=== PATIENT | female | born 1940 | race Caucasian/White ===

== ENCOUNTER → 2018-02-26 | Outpatient (CLI) | payer MEDICARE, OTHER ==
--- NOTE | 2018-02-26 10:49 | Diagnostic Imaging Report ---
PROCEDURE: US carotid duplex, bilateral. TECHNIQUE: Multiple real-time grayscale images were obtained over the carotid arteries in various projections, bilaterally. Additional duplex Doppler and color Doppler images were also obtained. INDICATION: Right carotid bruit. FINDINGS: No significant plaquing is identified in either carotid system. The velocities are normal bilaterally. No velocity elevation or stenosis is seen. Both vertebral arteries demonstrate antegrade flow. Parameters based on the consensus panel Huddleston-Scale and Doppler ultrasound criteria published June 2003, Radiology, Volume 229. DOPPLER (peak systolic velocity M/S Right Left CCA 1.0 .94 ICA Proximal 1.0 1.1 ICA Mid 1.2 1.2 ICA Distal 1.4 .64 RATIO 1.3 1.3 ECA 1.7 1.6 VERT .61 .77 IMPRESSION: No evidence of a hemodynamically significant stenosis. Dictated by: Dictated on workstation # [id number]
--- NOTE | 2018-02-26 10:54 | Diagnostic Imaging Report ---
INDICATION: Osteoporosis. COMPARISON: Comparison is made with prior DEXA study from 02/23/2015. FINDINGS: Bone mineral analysis of the lumbar spine was performed. The hips could not be evaluated due to bilateral hip replacements. Bone mineral density of the lumbar spine L2-L4 is 1.186 with T score -0.1. This compares with 0.980 and -1.8. IMPRESSION: Normal bone mineral density of the lumbar spine. Dictated by: Dictated on workstation # [id number]
== END ==
LOC: RAD 09:38
PROVIDERS: ATTEND Family Medicine
DX: R09.89 Other specified symptoms and signs involving the circulatory and respiratory systems (principal); M85.9 Disorder of bone density and structure, unspecified
CPT/HCPCS: 77080; 93880

== ENCOUNTER → 2019-02-19 | Outpatient (CLI) | payer MEDICARE ==
--- NOTE | 2019-02-19 15:54 | Diagnostic Imaging Report ---
INDICATION: 36 pack year smoker, current smoking, for low-dose CT screening. COMPARISON: 03/01/2016. FINDINGS: A juxtapleural micronodule in the right middle lobe at the lung base anteriorly (image 132/series 2) is stable confirming its benignity. Some increased septal density and groundglass heterogeneous opacity in the lungs are likely some worsened chronic interstitial disease. There is mild bronchiectasis. No new dominant or suspicious lung mass. No adenopathy, effusion, or pneumothorax. IMPRESSION: Chronic benign micronodule. No dominant or suspicious mass. Continued low-dose annual CT followup in 1 year is recommended. Worsened chronic interstitial disease with some mild bronchiectasis, increased septal thickening, scattered heterogeneous air trapping, and groundglass opacities as well as some curvilinear subpleural scarring. Lung RADS category 2. Dictated by: Dictated on workstation # [id number]
== END ==
LOC: RAD 13:00
PROVIDERS: ATTEND Family Medicine
DX: Z12.2 Encounter for screening for malignant neoplasm of respiratory organs (principal); J84.89 Other specified interstitial pulmonary diseases; R91.1 Solitary pulmonary nodule; R47.9 Unspecified speech disturbances; J34.89 Other specified disorders of nose and nasal sinuses; F17.210 Nicotine dependence, cigarettes, uncomplicated

== ENCOUNTER → 2019-05-12 | Outpatient (CLI) | payer MEDICARE ==
--- NOTE | 2019-05-12 15:03 | Diagnostic Imaging Report ---
PROCEDURE: US Renal Bilateral. TECHNIQUE: Multiple real-time grayscale images were obtained over the kidneys in various projections bilaterally. INDICATION: Renal insufficiency. FINDINGS: Right kidney measures 10.7 x 4.3 x 4.5 cm and the left kidney measures 10.7 x 5.6 x 4.4 cm. Cortical thickness and echogenicity are normal. No calculi are seen. There is no hydronephrosis. There are bilateral renal cysts. Largest cyst on the right is approximately 2.8 cm. Largest cyst on the left is 4.1 cm. Bladder demonstrates bilateral ureteral jets. IMPRESSION: 1. Bilateral renal cysts. No calculus or hydronephrosis is detected. Dictated by: Dictated on workstation # [id number]
== END ==
LOC: RAD 12:17
PROVIDERS: ATTEND Family Medicine
DX: N28.1 Cyst of kidney, acquired (principal)
CPT/HCPCS: 76770

== ENCOUNTER → 2019-06-09 | Outpatient (CLI) | payer MEDICARE ==
--- NOTE | 2019-06-09 15:07 | Diagnostic Imaging Report ---
INDICATION: Injury from a fall, back pain. FINDINGS: There is grade 1 spondylolisthesis at L4-L5. There is disc space narrowing at L1-2, L2-3, L3-4, and L4-5. There are anterior osteophytes forming throughout the lumbar spine. IMPRESSION: Spondylosis deforms. Diffuse degenerative disc changes. There is some facet arthropathy from L2 to S1. There is grade 1 spondylolisthesis at L5-S1. Dictated by: Dictated on workstation # [id number]
--- NOTE | 2019-06-09 15:10 | Diagnostic Imaging Report ---
INDICATION: Fall with low back pain extending into the legs. TIME OF EXAM: 2:49 PM FINDINGS: Multiple views of the sacroiliac joints were obtained. There is no evidence of ankylosis. No definite osseous erosion or sclerosis is seen. Postoperative changes bilateral hip arthroplasties are noted. The rami appear to be intact. Symphysis is non-widened. IMPRESSION: Unremarkable bilateral sacroiliac joints. No acute abnormality is detected. Dictated by: Dictated on workstation # [id number]
--- NOTE | 2019-06-09 15:11 | Diagnostic Imaging Report ---
INDICATION: Fall with left shoulder pain. TIME OF EXAM: 2:38 p.m. TECHNIQUE: Three views of the left shoulder were obtained. FINDINGS: Glenohumeral and acromioclavicular alignment are normal. There are degenerative changes at the AC joint. Acromiohumeral space is normal. No fracture or dislocation is identified. IMPRESSION: Degenerative changes. No acute bony abnormality is detected. Dictated by: Dictated on workstation # [id number]
== END ==
LOC: RAD 14:01
PROVIDERS: ATTEND Nurse Practitioner Family
DX: M47.816 Spondylosis without myelopathy or radiculopathy, lumbar region (principal); M51.16 Intervertebral disc disorders with radiculopathy, lumbar region; M43.17 Spondylolisthesis, lumbosacral region; M19.012 Primary osteoarthritis, left shoulder
CPT/HCPCS: 72100; 72202; 73030

== ENCOUNTER 2019-11-12 08:01 | Outpatient (RCR) | payer MEDICARE | END 2019-11-12 08:55 | disposition home or self-care (01) | PROVIDERS: ATTEND Family Medicine | DX: M51.36 Other intervertebral disc degeneration, lumbar region (principal); M53.3 Sacrococcygeal disorders, not elsewhere classified; I10 Essential (primary) hypertension; H91.90 Unspecified hearing loss, unspecified ear; Z96.643 Presence of artificial hip joint, bilateral ==

== ENCOUNTER → 2020-02-21 | Outpatient (CLI) | payer MEDICARE ==
--- NOTE | 2020-02-21 14:25 | Diagnostic Imaging Report ---
CT Lung Screening INDICATION: Screening for lung cancer, 86[address] history of smoking, current smoker. TECHNIQUE: Noncontrast, low-dose CT imaging performed according to the lung cancer screening protocol. Auto Exposure Controls were utilize during the CT exam to meet ALARA standards for radiation dose reduction. COMPARISON: February 19, 2019 and March 01, 2016. FINDINGS: No significant adenopathy within the chest. Mild scattered vascular calcifications. No aneurysmal dilatation of the thoracic aorta. The heart is within normal limits in size. No significant pericardial effusion or pleural effusion. No hiatal hernia. No pneumothorax. 0.4 x 0.4 cm solid right upper lobe pulmonary nodule is again identified and stable from prior examination, axial image 22. 4 mm subpleural right upper lobe pulmonary nodule is stable from the prior exam. Mild background interstitial lung changes are again identified with associated chronic reticular opacities and minimal bronchiectatic changes. Subpleural scarring and fibrosis is also again noted. The trachea appears patent. The minimally visualized upper abdomen is unremarkable. No acute osseous abnormality with scattered osseous degenerative changes. IMPRESSION: Similar-appearing background chronic interstitial lung changes with stable sub-6 mm right-sided pulmonary nodules. No new pulmonary nodules. LUNG-RADS CATEGORY: 2S: Benign appearance or behavior. MODIFIER: S: [id number] background chronic interstitial lung changes. FOLLOW-UP: Continued annual screening with low dose CT of the chest in 12 months. Dictated by: Dictated on workstation # [id number]
== END ==
LOC: RAD 12:35
PROVIDERS: ATTEND Family Medicine
DX: Z12.2 Encounter for screening for malignant neoplasm of respiratory organs (principal); R91.8 Other nonspecific abnormal finding of lung field; F17.210 Nicotine dependence, cigarettes, uncomplicated

== ENCOUNTER → 2020-02-28 | Outpatient (CLI) | payer MEDICARE ==
--- NOTE | 2020-02-28 14:41 | Diagnostic Imaging Report ---
Clinical indication: Patient has chronic low back pain. No known injury. Exam: MRI of the lumbar spine performed without IV contrast. Sagittal T2, sagittal T1, sagittal T2 fat-sat, and axial T2. Comparison: X-ray of the lumbar spine dated 06/09/2019. Findings: There is no acute lumbar spine fracture. There is Modic type I degenerative signal changes involving the T10-L1 levels. There is minimal Modic type I degenerative signal changes involving the L4 level. The visualized portions of the distal thoracic spinal cord, conus medullaris, and cauda equina nerve roots are unremarkable. The conus medullaris tip is seen at the T12-L1 intervertebral level. There are at least 2 cysts involving the upper pole of the right kidney which appears simple. There is a roughly 4.2 cm simple appearing exophytic cyst involving the inferior portion of the left kidney. The largest one measures 3.1 cm in greatest axial dimension. There is no significant paraspinal soft tissue abnormality. There are hypertrophic spurs and facet arthropathy seen throughout the lumbar spine. Visualized upper thoracic spine: There are diffuse disc bulges involving the T9-T10, T10-T11, and T11-T12 levels. There is mild loss of disc space height at the T9-T10 level and moderate to severe loss of disc space height at the T10-T11 and T11-T12 levels. There is facet arthropathy at these levels seen. There is moderate to severe bilateral T10-T11 neural foramen narrowing. There is moderate to severe left T11-T12 neural foramen narrowing. There is a 11 mm perineural cyst within the right T8-T9 neural foramen region. There is at least mild central canal narrowing at the T9-T12 levels. T12-L1: There is diffuse disc bulge and mild loss of disc space height. There is mild to moderate bilateral facet arthropathy. There is mild central canal narrowing and at least mild bilateral neural foramen narrowing. There is a small perineural cyst in right neural foraminal region which measures grossly 8 mm on the axial sequence. L1-L2: There is diffuse disc bulge with moderate to severe loss of disc space height. There are disc spurs extending into the foraminal regions bilaterally. There is moderate bilateral facet arthropathy. There is severe bilateral neural foramen narrowing. There is a roughly 8 mm perineural cyst in the left neural foramen region. There is mild to moderate central canal stenosis. L2-L3: There is diffuse disc bulge and moderate loss of disc space height. There is disc spurs extending into the foraminal regions bilaterally. There is severe facet arthropathy/hypertrophy on the right. There is moderate left facet arthropathy. There is severe central canal stenosis and severe right neural foramen narrowing and moderate to severe left neural foramen narrowing. L3-L4: There is diffuse disc bulge and moderate to severe loss of disc space height. There is small disc spurs extending into the foraminal regions bilaterally and posteriorly. There is severe right facet arthropathy/hypertrophy and moderate left facet arthropathy. There is mild to moderate central canal stenosis. There is severe bilateral neural foramen narrowing. L4-L5: There is roughly 6 mm grade 1 anterolisthesis of L4 on L5. There is a diffuse disc bulge with slight uncovering of the posterior aspect of the disc. There is severe loss of disc space height. There is severe bilateral facet arthropathy/hypertrophy. There is severe central canal stenosis with complete effacement of the thecal sac. There is severe right neural foramen narrowing and moderate to severe left neural foramen narrowing. L5-S1: There is no significant disc bulge. There is a small annular tear involving the anterior aspect of disc. There is severe bilateral facet arthropathy/hypertrophy. There is no significant central canal narrowing. There is moderate to severe right neural foramen narrowing and no significant left neural foramen narrowing. IMPRESSION: 1: There is severe multilevel thoracolumbar spine degenerative disc disease with diffuse disc bulges, disc spurs and facet arthropathy. This described in detail above. 2: There is grade 1 anterolisthesis of L4 on L5 with diffuse disc bulge with slight uncovering of the posterior aspect of this. There is severe L4-L5 bilateral facet arthropathy/hypertrophy. There is associated severe central canal stenosis, severe right neural foramen narrowing and moderate to severe left neural foramen narrowing at the L4-L5 level. 3: The remainder of the lumbar levels are described above. 4: Bilateral renal cysts. Dictated by: Dictated on workstation # [id number]
== END ==
LOC: RAD 12:44
PROVIDERS: ATTEND Family Medicine
DX: M51.17 Intervertebral disc disorders with radiculopathy, lumbosacral region (principal); M51.15 Intervertebral disc disorders with radiculopathy, thoracolumbar region; M48.05 Spinal stenosis, thoracolumbar region; M48.07 Spinal stenosis, lumbosacral region; M43.16 Spondylolisthesis, lumbar region; N28.1 Cyst of kidney, acquired
CPT/HCPCS: 72148